=== PATIENT | male | born 1975 | race Hispanic/Latino ===

== ENCOUNTER 2017-02-07 01:22 | Emergency (ER) | payer MEDICAID ==
[2017-02-07 02:23] LABS: A/G RATIO 1.5; ALBUMIN 4.6 g/dL (3.5-5.0); BILIRUBIN, TOTAL 0.5 mg/dL (0.2-1.3); CREATININE 1.7 mg/dL (0.7-1.3); POTASSIUM 3.8 mmol/L (3.5-5.1); TOTAL PROTEIN 7.7 g/dL (6.3-8.2)
[2017-02-07 02:27] LABS: BASOPHILS 0.4 % (0.0-2.0); EOSINOPHILS 1.9 % (0.0-6.0); EOSINOPHILS# 0.2 X 10^3uL (0.0-0.4); HEMATOCRIT 43.3 % (42.0-54.0); HEMOGLOBIN 14.8 g/dL (14.0-18.0); LYMPHOCYTES 50.8 % (20.0-40.0); MEAN CELL VOLUME 87.6 fL (80.0-100.0); MEAN CORPUS. HGB CONCENTRATION 34.3 g/dL (32.0-36.0); MEAN PLATELET VOLUME 7.9 fL (7.4-10.4); MONOCYTES 7.7 % (2.0-10.0); MONOCYTES# 0.9 X 10^3uL (0.2-1.0); NEUTROPHILS 39.2 % (54.0-75.0); NEUTROPHILS# 4.4 X 10^3uL (2.6-6.7); RED BLOOD COUNT 4.94 X 10^6uL (4.20-6.10); RED CELL DISTRIBUTION WIDTH 13.1 % (11.5-14.5); WHITE BLOOD COUNT 11.1 X 10^3uL (3.9-10.7)
[2017-02-07] MEDS ORDERED: ONDANSETRON HCL 4 MG/2 ML VIAL ONE (02:49)
--- NOTE | 2017-02-07 03:41 | ER NURSING DOCUMENTATION ---
Nurse's Notes [facility] Name:Margie Acosta Age:41 yrs Sex:Male :1975 Arrival Date:02/07/2017 Time:01:20 Bed1 Private MD: Diagnosis:Alcohol (ETOH) Intoxication, Nondependent;Chronic Renal Failure/Insufficiency Presentation: 02/07 01:23 Presenting complaint: states: drank too much vodka tonight, feels like he cannot lb breath. also smoked hookah tonight. Transition of care: Home. Notified ED Physician of Dr. Arora notified. 01:23 Acuity: MARGARITO 3 lb 01:23 Method Of Arrival: Wheelchair lb Triage Assessment: :26 General: Appears distressed, Behavior is agitated, restless. Pain: Denies pain. lb Respiratory: No deficits noted. Airway is patent Trachea midline Breath sounds are clear bilaterally. Historical: - Allergies: No known drug Allergies; - Home Meds: 1. Lisinopril Oral 2. Allopurinol Oral - PMHx: Hypertension; GERD; - PSHx: None; - Tetanus: < 10 years. - Ebola Screening: : Patient denies exposure to infectious person. Patient denies travel to an Ebola-affected area in the 21 days before illness onset. . - Immunization history: Flu Vaccine None. - Social history: Smoking status: Patient states was never smoker of tobacco. Patient uses alcohol occasionally. smoked hookah tonight. - Code Status:: Full code. Screenin:28 Infectious Disease Risk None. Abuse screen: Denies threats or abuse. Denies injuries lb from another. Nutritional screening: No deficits noted. Suicide Risk Assessment: Suicidal Thinking Present - No ( 0 points), Past Attempts - No (0 points). Assessment: 01:28 See Triage Assessment done by same RN. lb Vital Signs: 01:27 BP 140 / 67; Pulse 78; Resp 12; Pulse Ox 99% on R/A; Height 2 ft. 20 in. (111.76 cm); lb Pain 0/10; 03:39 BP 101 / 56; Pulse 60; Resp 12; Pulse Ox 99% on R/A; Pain 0/10; lb ED Course: 01:20 Patient arrived in ED. em3 01:23 Monika Long is Primary Nurse. lb 01:24 Triage completed. lb 01:28 Vasquez Arora MD is Attending Physician. tl1 01:28 Valuables Given to family. Patient has correct armband on for positive identification. lb Placed in gown. Bed in low position. Call light in reach. 01:37 Labs drawn. By smoke jumper supervisor Sent per order to lab. Inserted saline lock: 20 gauge in left em3 antecubital area and blood collected. Administered Medications: 02:41 Drug: Zofran 4 mg; Route: IVP; Infused Over: 2 mins; Site: left antecubital; lb 03:24 Follow up: Response: Nausea is decreased lb 03:38 Follow up: Response: Nausea is decreased lb 02:41 Drug: NS 0.9% 1000 ml; Route: IV; Rate: bolus; Site: right antecubital; lb 03:38 Follow up: IV Status: Completed infusion; IV Intake: 1000ml lb 03:39 Not Given (Physician Discretion): NS 0.9% 1000 ml IV at bolus once lb Intake: 03:38 IV: 1000ml; Total: 1000ml. lb Outcome: 03:15 Discharge ordered by . tl1 03:39 Discharged to home ambulatory. lb 03:39 Condition: improved 03:39 Discharge Assessment: Patient awake, lethargic, Oriented to person, place, Patient verbalized understanding of disposition instructions. Patient able 03:39 Instructed on discharge instructions, follow up and referral plans. 03:39 IV D/Carlo 03:40 Patient left the ED. lb 04 09:29 Discharge F/U Call: Unable to reach: no answer st Signatures: Meli Anderson RN Faustino Estevez 3 Vasqeuz Arora MD MD tl1 Monika Long lb
--- NOTE | 2017-02-07 03:41 | ER PHYSICIAN DOCUMENTATION ---
Physician Documentation [facility] Name:Margie Acosta Age:41 yrs Sex:Male :1975 Arrival Date:02/07/2017 Time:01:20 Bed1 Private MD: Vasquez Mullen Disposition: 02/08 04:00 Chart complete. tl1 Disposition: 02/07/17 03:15 Discharged to Home/Self Care. Impression: Alcohol (ETOH) Intoxication, Nondependent, Chronic Renal Failure/Insufficiency. - Condition is Good. - Discharge Instructions: Abuse, Alcohol - ALCOHOL INTOXICATION. - Medical Reconciliation form form. - Follow up: Private Physician; When: 2 - 3 days; Reason: Recheck today's complaints, Continuance of care. - Problem is new. - Symptoms have improved. - Notes: Your kidney function is moderately abnormal, but this does not appear to be an urgent problem now. You should, however, make sure you have follow up with a doctor within a week. Avoid alcohol use until you see your local doctor in [place]. HPI: 02/07 01:21 This 41 yrs old Male presents to ER via Wheelchair with complaints of ETOH tl1 Abuse. 01:21 The patient presents to the emergency department with a history of substance abuse, tl1 Type: vodka, Tobacco - Hookah pipe.. Onset: The symptom(s)/episode began/occurred today. lHe drank too much alcohol (vodka) tonight for unclear reasons. He is unwilling to cooperate with the history. Unknown how much he drank. denies other recreational drug use other than tobacco (Hookah pipe). His says he has complained of shortness of breath. Despite multiple attempts, the patient was uncooperative with the history.. Historical: - Allergies: No known drug Allergies; - Home Meds: 1. Lisinopril Oral 2. Allopurinol Oral - PMHx: Hypertension; GERD; - PSHx: None; - Tetanus: < 10 years. - Ebola Screening: : Patient denies exposure to infectious person. Patient denies travel to an Ebola-affected area in the 21 days before illness onset. . - Immunization history: Flu Vaccine None. - Social history: Smoking status: Patient states was never smoker of tobacco. Patient uses alcohol occasionally. smoked hookah tonight. - Code Status:: Full code. ROS: 01:35 Psych: Negative for suicidal ideation. tl1 01:35 Unable to obtain ROS due to patient being uncooperative. Exam: 01:35 Constitutional: The patient appears alert, awake, well developed, obese, smells of tl1 alcohol, ETOH, restless, uncomfortable. 01:35 Head/face: Exam is negative for acute changes. 01:35 Eyes: Periorbital structures: appear normal, Pupils: equal, round, and reactive to light and accomodation, Extraocular movements: intact throughout, Lids and lashes: appear normal. 01:35 ENT: Exam is negative for acute changes, Mouth: Lips: normal, Oral mucosa: normal, Tongue: is normal, Posterior pharynx: is normal, Voice: is normal. 01:35 Neck: External neck: is normal, ROM/movement: is normal. 01:35 Cardiovascular: Rate: normal, Rhythm: regular, Heart sounds: normal, Edema: is not appreciated, JVD: is not appreciated. 01:35 Respiratory: Respirations: normal, Breath sounds: are normal. 01:35 Abdomen/GI: Inspection: abdomen appears normal, Bowel sounds: normal, Palpation: abdomen is soft and non-tender, mass, is not appreciated, rebound tenderness, is not appreciated. Vital Signs: 01:27 BP 140 / 67; Pulse 78; Resp 12; Pulse Ox 99% on R/A; Height 2 ft. 20 in. (111.76 cm); lb Pain 0/10; 03:39 BP 101 / 56; Pulse 60; Resp 12; Pulse Ox 99% on R/A; Pain 0/10; lb MDM: 01:28 Patient medically screened. tl1 03:20 Differential diagnosis: alcohol, nicotine abuse, vs other undetectable recreational tl1 drug use. Data reviewed: vital signs, nurses notes, lab test result(s), drug level(s), electrolytes, hepatic panel, urine drug screen. Data reviewed: and as a result, I will discharge patient. Counseling: I had a detailed discussion with the patient and/or guardian regarding: the historical points, exam findings, and any diagnostic results supporting the discharge/admit diagnosis, lab results, the need for outpatient follow up, to return to the emergency department if symptoms worsen or persist or if there are any questions or concerns that arise at home. Response to treatment: the patient's symptoms have markedly improved after treatment, and as a result, I will discharge patient. ED course: He was hemodynamically stable, with a stable respiratory status. He slowly became more sober and was ambulatory from the department with a stable gait.. 02/07 02:27 Order name: COMPREHENSIVE METABOLIC PANEL; Complete Time: 03:11 EDMS 02/07 02:29 Interpretation: Normal Except: CREATININE 1.7; ALT 78. tl1 02/07 02:27 Order name: ETHYL ALCOHOL; Complete Time: 03:11 EDMS 02/07 02:29 Interpretation: Abnormal: ETHYL ALCOHOL 176. tl1 02/07 02:52 Order name: CBC AUTO DIF, MDIF/RMOR IF IND; Complete Time: 03:11 EDMS 02/07 03:10 Interpretation: WHITE BLOOD COUNT 11.1; HEMOGLOBIN 14.8; HEMATOCRIT 43.3; PLATELET tl1 COUNT 283; NEUTROPHILS 39.2; LYMPHOCYTES 50.8. Dispensed Medications: 02:41 Drug: Zofran 4 mg; Route: IVP; Infused Over: 2 mins; Site: left antecubital; lb 03:24 Follow up: Response: Nausea is decreased lb 03:38 Follow up: Response: Nausea is decreased lb 02:41 Drug: NS 0.9% 1000 ml; Route: IV; Rate: bolus; Site: right antecubital; lb 03:38 Follow up: IV Status: Completed infusion; IV Intake: 1000ml lb 03:39 Not Given (Physician Discretion): NS 0.9% 1000 ml IV at bolus once lb Signatures: Vasquez Arora MD MD tl1 Monika Long lb
[2017-02-10 15:39] LABS: LYMPHOCYTES# 5.6 X 10^3uL (0.8-3.8)
== END 2017-02-07 03:41 | disposition home or self-care (01) ==
LOC: ER 01:22
DX: F10.129 Alcohol abuse with intoxication, unspecified (principal); N18.9 Chronic kidney disease, unspecified; Z72.0 Tobacco use
CPT/HCPCS: 80053; 80320; 85025; 96361; 96374; 99283; J2405